=== PATIENT | female | born 2000 | race Caucasian/White ===

== ENCOUNTER 2018-10-20 13:38 | Inpatient (IN) ==
[2018-10-20] MEDS ORDERED: Sodium Chlor 0.9% Inj 500 ML IV.SIG PRN (14:20)
[2018-10-20] MEDS ORDERED: Naloxone Inj 0.4 MG/ML Vial IV.PUSH PRN (14:20)
[2018-10-20] MEDS ORDERED: Oxytocin 30 Units/500ml Premix 30 UNITS/500 ML BAG IV.SIG ONE (14:20)
[2018-10-20] MEDS ORDERED: Sod Chloride 0.9% Inj 1,000 ML IV.CONT PRN (14:20)
[2018-10-20] MEDS ORDERED: fentaNYL Citrate Inj 100 MCG/2 ML Ampul IV.PUSH PRN ×2 (14:20)
--- NOTE | 2018-10-20 14:22 | ED ---
History of Present Illness Primary Care Physician: No Primary Care Physician Chief Complaint: gush of fluid, contractions History of Present Illness: 18-year-old female at 37/5 weeks gestation presents to the OB ED for gush of clear fluid and contractions occurring every 10 minutes that started at 11 AM this morning. Patient states that she recently started noticing pink tinged fluid. Contractions are now occurring every 2-3 minutes. Patient is experiencing significant lower abdominal pressure and low back pain with each contraction. Denies decreased movement or vaginal bleeding. Patient states that she is nauseous and started vomiting during the interview. Denies headache, vision change, chest pain, shortness of breath, No abnormal lab testing. GBS negative. Past medical history: None Medications: vitamin Allergies: None Surgical history: Tooth extraction Hospitalizations: None Social history: Non-smoker, denies EtOH or drug use during this . [facility]CP: [facility], Dr. Marr Weeks Gestation:: 37 Para: 0 : 1 Review of Systems All other systems reviewed negative except as stated in HPI PMFSH - History History Provided By: Patient - Medical / Surgical Hx Neg / Unobtainable Medical Problems Denied: Yes - Medical History Medical History: Medical History (Last Updated 10/20/18 @ 14:43 by Dali Farr R1, DO, R1) History of tooth extraction - Social History I have reviewed the patient's Social History: Yes - Tobacco History Smoking Status: Never smoker - Alcohol History How Often Do You Have a Drink Containing Alcohol: Never - Substance Use History Substance History: No History of Abuse - Travel History Recent Travel in the [facility] Within the Last 8 Weeks: No Recent Travel Out of the Country Within the Last 8 Weeks: No Medications and Allergies Allergies Allergy/AdvReac Type Severity Reaction Status Date / Time No Known Allergies Allergy Uncoded 07/21/17 12:30 Home Medications Medication Instructions Recorded Confirmed Type PNV [id number] fumarate-FA 1 tab PO DAILY 10/20/18 10/20/18 History [] Exam Vital signs: Vital Signs 10/20/18 13:55 Temperature 98.9 F Respiratory Rate 17 Narrative: GENERAL: Well-nourished, well-developed patient. SKIN: Warm and dry. HEAD: Normocephalic and atraumatic. EYES: No scleral icterus. No injection or drainage. ENT: No nasal drainage noted. Mucous membranes pink. Airway patent. NECK: Supple, trachea midline. No JVD. CARDIOVASCULAR: Regular rate and rhythm without murmurs, gallops, or rubs. RESPIRATORY: Breath sounds equal bilaterally. No accessory muscle use. ABDOMEN/GI: Abdomen soft, non-tender, bowel sounds present, no rebound, no guarding Gravid to 37 weeks size GENITOURINARY: External Genitalia: intact and normal in appearance Cervix: posterior Dilatation: 2 Effacement: 90 % Station: 0 Presentation: vertex Membranes: floor bag Uterine Contractions: every 2-3 mins FHT's: Category: 1 Baseline: 140s Reactive: Y Variability: moderate Decels: none Accelerations: Y Contractions: every 2-3 mins EXTREMITIES: No cyanosis or edema. BACK: Nontender without obvious deformity. No CVA tenderness. NEUROLOGICAL: Awake and alert. Motor and sensory grossly within normal limits. Five out of 5 muscle strength in all muscle groups. Normal speech. Results - Labs CBC & Chem 7: 10/20/18 14:40 Assessment and Plan - Diagnosis (1) 37 weeks gestation of Code(s): K08.409 - Partial loss of teeth, unspecified cause, unspecified class Status: Acute (2) Uterine contractions during Code(s): K08.409 - Partial loss of teeth, unspecified cause, unspecified class Status: Acute - Plan 18-year-old female at 37/5 weeks gestation presents to the OB ED for gush of clear fluid and contractions occurring every 2-5 minutes. -Continuous monitoring showed category 1 FHT, reassuring. Contractions occurring every 3 mins. -Cervical check posterior 2/90%/0 -Zofran 4mg IV ordered for nausea -Admit to L&D for expectant management sdw, OB hospitalist, Dr. Rose Discharge Plan - Physicians Team Primary Care Provider: [facility]ici,No Attending Provider: Jo Rose
[2018-10-20] MEDS ORDERED: Citric Acid/Sodium Citrate Liq 30 ML UDC PO SCH (14:30)
[2018-10-20 15:09] LABS: Baso % (Auto) 0.3 % (0.0-2.0); Eos # (Auto) 0.1 th/mm3 (0.0-0.4); Eos % (Auto) 0.7 % (0.0-4.0); Hematocrit 36.6 % (35.0-46.0); Hemoglobin 12.6 gm/dL (11.6-15.3); Lymph # (Auto) 2.5 th/mm3 (1.0-4.8); Lymph % (Auto) 24.6 % (9.0-44.0); Mean Corpuscular HGB Conc 34.5 % (32.0-36.0); Mean Corpuscular Hemoglobin 32.4 pg (27.0-34.0); Mean Platelet Volume 7.3 fL (7.0-11.0); Mono # (Auto) 0.6 th/mm3 (0.0-0.9); Mono % (Auto) 5.8 % (0.0-8.0); Neut # (Auto) 6.9 th/mm3 (1.8-7.7); Neut % (Auto) 68.6 % (16.0-70.0); Platelet Count 275 th/mm3 (150-450); Red Blood Count 3.89 mil/mm3 (4.00-5.30); White Blood Count 10.1 th/mm3 (4.0-11.0)
[2018-10-20] MEDS ORDERED: Oxytocin 30 Units/500ml Premix 30 UNITS/500 ML BAG IV.SIG PRN (16:02)
[2018-10-20] MEDS ORDERED: fentaNYL 2MCG-Bupiv 0.125% Epi 150 ML EPIDURAL ONE (17:27)
[2018-10-20] MEDS ORDERED: fentaNYL Citrate Inj 100 MCG/2 ML Ampul EPIDURAL ONE (18:10)
[2018-10-20] MEDS ORDERED: fentaNYL 2MCG-Bupiv 0.125% Epi 150 ML EPIDURAL PRN (18:10)
[2018-10-20 20:13] LABS: Bilirubin,Urine Negative (Negative); Clarity,Urine Clear (Clear); Color,Urine Yellow (Yellw/Straw); Glucose,Urine (UA) 50 mg/dL (Negative); Hyaline Casts,Urine 1 /lpf (0-3); Leukocyte Esterase,Urine Negative (Negative); Mucus,Urine Few /lpf (Occasional); Nitrite,Urine Negative (Negative); Specific Gravity,Urine 1.014 (1.002-1.035); Squamous Epithelial Cell,Urine <1 /hpf (0-5)
[2018-10-21] MEDS ORDERED: Witch Hazel 50%/Glyderin 12.5% 40 Pad Jar RECTAL PRN (02:08)
[2018-10-21] MEDS ORDERED: Zolpidem Tartrate 5 MG Tablet PO PRN (02:08)
[2018-10-21] MEDS ORDERED: Oxytocin 30 Units/500ml Premix 30 UNITS/500 ML BAG IV.CONT PRN (02:08)
[2018-10-21] MEDS ORDERED: Benzocaine 20% Top Spray 60 ML Can TOPICAL PRN (02:08)
[2018-10-21] MEDS ORDERED: Naloxone Inj 0.4 MG/ML Vial IV.PUSH PRN (02:08)
[2018-10-21] MEDS ORDERED: Bisacodyl 10 MG Supp RECTAL PRN (02:08)
--- NOTE | 2018-10-21 02:12 | P.OBDELI ---
Weeks Gestation: 37 Patient Started Active Labor: Yes Medical Induction of Labor: No Artificial Rupture of Membrane: No Anesthesia: Epidural Episiotomy: none Vaginal Delivery: Normal Presentation: Occiput anterior Nuchal Cord: Other (cord around R. foot) Delayed Cord Clamping (45 sec): Yes Placenta: Spontaneous delivery Laceration: None Estimated blood loss (mL): 50 Infant: Female Infant score (1 min): 8 score (5 min): 9
[2018-10-21] MEDS ORDERED: Ibuprofen Liq 100 MG/5 ML 120 ML Bottle PO PRN (05:04)
[2018-10-21] MEDS: Ibuprofen Liq 100 MG/5 ML UDC PO PRN (07:35)
--- NOTE | 2018-10-21 09:52 | P.PNADD ---
Addendum to Inpatient Note Reason for Addendum: Additional Documentation Additional information: Examined patient due to complaints of right arm swelling and pain. Patient states she no longer has swelling or pain since IV was taken out. On exam, arm swelling is trace. Some light redness noted around IV site at the medial decubitus but no tracking observed. Normal ROM and pulses intact. Con't to monitor via nursing and apply ice packs to site to improve swelling. RICARDO LEE
[2018-10-21] MEDS: Acetaminophen 325 MG Tablet PO PRN (11:47)
[2018-10-21] MEDS: Senna/Docusate Sodium 8.6/50 MG Tablet PO SCH (14:42)
[2018-10-21] MEDS ORDERED: Measles/Mumps/Rubella Vaccine Inj 0.5 ML Vial SQ ONE (16:00)
[2018-10-21] MEDS ORDERED: Diphtheria/Tetanus/Pertussis Vaccine Inj 0.5 ML Syringe IM ONE (16:00)
[2018-10-22] MEDS: Senna/Docusate Sodium 8.6/50 MG Tablet PO SCH ×3 (00:11→20:11)
[2018-10-22] MEDS: Ibuprofen Liq 100 MG/5 ML UDC PO PRN (02:00)
--- NOTE | 2018-10-22 07:30 | P.PNOB ---
Subjective Post day: 1 Interval history: Patient is a 18 year-old delivered at 37 weeks. Patient is day 1 after . Patient's pain is well-controlled. Patient reports eating and drinking without any nausea or vomiting. Patient reports minimal bleeding. Patient has passed gas but no bowel movements. Patient is walking without lower extremity pain or shortness of breath. Patient reports desire for contraception and breast-feeding. Objective Vital Signs/I&O: Vital Signs 10/21/18 08:00 10/21/18 20:00 Temperature 98.1 F 98.2 F Pulse Rate 76 80 Respiratory Rate 18 18 Blood Pressure 104/66 106/75 Result Diagrams: 10/20/18 14:40 Objective Remarks: GENERAL: Well-nourished, well-developed patient. CARDIOVASCULAR: Regular rate and rhythm without murmurs, gallops, or rubs. RESPIRATORY: Breath sounds equal bilaterally. No accessory muscle use. ABDOMEN/GI: Abdomen soft, non-tender. Fundus: Firm, non-tender at umbilicus. GENITOURINARY: Light to moderate bleeding. EXTREMITIES: No cyanosis or edema, non-tender, without signs of DVT. Medications and IVs: Active Medications Acetaminophen (Tylenol) 650 mg PO Q4H PRN PRN Reason: PAIN SCALE 1 TO 2 Last Admin: 10/21/18 11:47 Dose: 650 mg Al Hydroxide/Mg Hydroxide (Milk Of Magnjhony Liq) 30 ml PO Q12H PRN PRN Reason: Mild Constipation Benzocaine (Americaine 20% Top [place]) 1 spray TOPICAL Q4H PRN PRN Reason: For Perineum Discomfort Bisacodyl (Dulcolax Supp) 10 mg RECTAL DAILY PRN PRN Reason: SEVERE CONSITIPATION Oxytocin (Pitocin 30 Units/Ns 500 Ml Premix) 30 units in 500 mls @ 1 mls/hr IV.SIG TITRATE PRN; Protocol PRN Reason: For induction of labor Last Admin: 10/20/18 16:37 Dose: 1 milliunit/min, 1 mls/hr Fentanyl/Bupivacaine/Sodium Chlor (Fentanyl 2 Mcg-Bupiv 0.125% Epi) 150 mls @ 8 mls/hr EPIDURAL PRN PRN PRN Reason: for Labor Pain Last Admin: 10/20/18 17:50 Dose: 8 mls/hr Oxytocin (Pitocin 30 Units/Ns 500 Ml Premix) 30 units in 500 mls @ 100 mls/hr IV.CONT UNSCH PRN PRN Reason: Heavy bleeding Ibuprofen (Motrin Liq) 800 mg PO Q8H PRN PRN Reason: For Cramping/ PAIN 1-10 Lactulose (Lactulose Liq) 30 ml PO DAILY PRN PRN Reason: SEVERE CONSITIPATION Naloxone HCl (Narcan Inj) 0.1 mg IV.PUSH Q2M PRN PRN Reason: for opiate reversal Ondansetron HCl (Zofran Odt) 4 mg PO Q6H PRN PRN Reason: NAUSEA OR VOMITING Senna/Docusate Sodium (Kamila-Colace) 1 tab PO BID [facility] Last Admin: 10/22/18 00:11 Dose: Not Given Sennosides (Senokot) 17.2 mg PO Q12H PRN PRN Reason: Moderate Constipation Sodium Chloride (Ns Flush) 2 ml IV.FLUSH BID [facility] Last Admin: 10/22/18 00:11 Dose: Not Given Sodium Chloride (Ns Flush) 2 ml IV.FLUSH PRN PRN PRN Reason: FLUSH AFTER USING IV ACCESS Witch Delia/Glycerin (Tucks Pads) 1 applicatio RECTAL QID PRN PRN Reason: HEMORRHOIDS Last Admin: 10/21/18 13:05 Dose: 1 applicatio Zolpidem Tartrate (Ambien) 5 mg PO HS PRN PRN Reason: SLEEP Assessment and Plan - Diagnosis (1) Vaginal delivery Code(s): O80 - Encounter for full-term uncomplicated delivery Status: Acute - Plan Patient is a 18-year-old delivered at 37 weeks. Patient is day 1 after . Patient was counseled to do 6 weeks of pelvic rest. Patient was counseled to follow up in 6 weeks. Patient requested follow-up and contraception. --AF VSS --Continue routine care --Motrin and Percocet when necessary for pain --Encourage OOB --Pelvic rest for 6 weeks will need follow-up appointment at that time. --Contraception: pt unsure at this time --Anticipate discharge tomorrow [facility] OB hospitalist
[2018-10-22] MEDS: Ibuprofen Liq 100 MG/5 ML 120 ML Bottle PO PRN ×2 (11:48→20:12)
[2018-10-22] MEDS: Acetaminophen 325 MG Tablet PO PRN ×2 (16:44→20:45)
[2018-10-22 20:20] VITALS: RESP 18
[2018-10-23] MEDS: Acetaminophen 325 MG Tablet PO PRN (08:14)
[2018-10-23] MEDS: Ibuprofen Liq 100 MG/5 ML 120 ML Bottle PO PRN (08:14)
[2018-10-23] MEDS: Senna/Docusate Sodium 8.6/50 MG Tablet PO SCH (08:19)
[2018-10-23 09:05] VITALS: BP 121/80; PULSE 67; TEMP 98.2
--- NOTE | 2018-10-23 10:21 | P.PNOB ---
Subjective Interval history: Patient is a 18-year-old delivered at 37 weeks and 6 days. Patient is day 2 after . Patient's pain is well-controlled. Patient reports eating and drinking without any nausea or vomiting. Patient reports minimal bleeding. Patient has had a bowel movement. Patient is walking without lower extremity pain or shortness of breath. Patient reports desire for contraception and formula feeding. Objective Vital Signs/I&O: Vital Signs 10/22/18 20:00 10/23/18 08:00 Temperature 98.3 F 98.2 F Pulse Rate 72 67 Respiratory Rate 18 18 Blood Pressure 116/67 121/80 Result Diagrams: 10/20/18 14:40 Objective Remarks: GENERAL: Well-nourished, well-developed patient. CARDIOVASCULAR: Regular rate and rhythm without murmurs, gallops, or rubs. RESPIRATORY: Breath sounds equal bilaterally. No accessory muscle use. ABDOMEN/GI: Abdomen soft, non-tender. Fundus: Firm, non-tender at umbilicus. GENITOURINARY: Light to moderate bleeding. EXTREMITIES: No cyanosis or edema, non-tender, without signs of DVT. Medications and IVs: Active Medications Acetaminophen (Tylenol) 650 mg PO Q4H PRN PRN Reason: PAIN SCALE 1 TO 2 Last Admin: 10/23/18 08:14 Dose: 650 mg Al Hydroxide/Mg Hydroxide (Milk Of Magnjhony Liq) 30 ml PO Q12H PRN PRN Reason: Mild Constipation Benzocaine (Americaine 20% Top [place]) 1 spray TOPICAL Q4H PRN PRN Reason: For Perineum Discomfort Bisacodyl (Dulcolax Supp) 10 mg RECTAL DAILY PRN PRN Reason: SEVERE CONSITIPATION Oxytocin (Pitocin 30 Units/Ns 500 Ml Premix) 30 units in 500 mls @ 1 mls/hr IV.SIG TITRATE PRN; Protocol PRN Reason: For induction of labor Last Admin: 10/20/18 16:37 Dose: 1 milliunit/min, 1 mls/hr Fentanyl/Bupivacaine/Sodium Chlor (Fentanyl 2 Mcg-Bupiv 0.125% Epi) 150 mls @ 8 mls/hr EPIDURAL PRN PRN PRN Reason: for Labor Pain Last Admin: 10/20/18 17:50 Dose: 8 mls/hr Oxytocin (Pitocin 30 Units/Ns 500 Ml Premix) 30 units in 500 mls @ 100 mls/hr IV.CONT UNSCH PRN PRN Reason: Heavy bleeding Ibuprofen (Motrin Liq) 800 mg PO Q8H PRN PRN Reason: For Cramping/ PAIN 1-10 Last Admin: 10/23/18 08:14 Dose: 800 mg Lactulose (Lactulose Liq) 30 ml PO DAILY PRN PRN Reason: SEVERE CONSITIPATION Naloxone HCl (Narcan Inj) 0.1 mg IV.PUSH Q2M PRN PRN Reason: for opiate reversal Ondansetron HCl (Zofran Odt) 4 mg PO Q6H PRN PRN Reason: NAUSEA OR VOMITING Senna/Docusate Sodium (Kamila-Colace) 1 tab PO BID [facility] Last Admin: 10/23/18 08:19 Dose: Not Given Sennosides (Senokot) 17.2 mg PO Q12H PRN PRN Reason: Moderate Constipation Sodium Chloride (Ns Flush) 2 ml IV.FLUSH BID [facility] Last Admin: 10/23/18 09:54 Dose: Not Given Sodium Chloride (Ns Flush) 2 ml IV.FLUSH PRN PRN PRN Reason: FLUSH AFTER USING IV ACCESS Witch Delia/Glycerin (Tucks Pads) 1 applicatio RECTAL QID PRN PRN Reason: HEMORRHOIDS Last Admin: 10/21/18 13:05 Dose: 1 applicatio Zolpidem Tartrate (Ambien) 5 mg PO HS PRN PRN Reason: SLEEP Assessment and Plan - Diagnosis (1) Vaginal delivery Code(s): O80 - Encounter for full-term uncomplicated delivery Status: Acute - Plan Patient is a 18-year-old delivered at 37 weeks. Patient is day 2 after . Patient was counseled to do 6 weeks of pelvic rest. Patient was counseled to follow up in 6 weeks. Patient requested follow-up and contraception. --AF VSS --Continue routine care --Motrin and Tylenol when necessary for pain --Encourage OOB --Pelvic rest for 6 weeks will need follow-up appointment at that time. --Contraception: Interested in an IUD as an outpatient --Anticipate discharge today [facility] OB hospitalist
== END 2018-10-23 11:40 | disposition home or self-care (01) | DRG 807 ==
LOC: HOBED 13:38 → H2E 14:19 → H1EA 10-21 04:49
PROVIDERS: ADMIT Obstetrics & Gynecology; ATTEND Obstetrics & Gynecology
CPT/HCPCS: 80307; 81001; 85025; 86900; 86901; 90715; 99285; G0481; G0483; J2405; J2590; J3010; J7120